=== PATIENT | female | born 1970 | race Caucasian/White ===

== ENCOUNTER 2016-08-10 11:08 | Emergency (ER) | payer MEDICAID ==
[~2016-08-10] VITALS: Ht 152.4 cm; Wt 56.0 kg
[2016-08-10 11:16] VITALS: Ht 152.4 cm; Wt 56.0 kg
[2016-08-10] MEDS ORDERED: ASPIRIN 325 MG TAB PO STA (14:45)
[2016-08-10 15:04] LABS: ADD SCAN DIFF NO
[2016-08-10 15:23] LABS: ANION GAP 11 (8-16); BLOOD UREA NITROGEN 17 mg/dl (7-20); CALCIUM 8.9 mg/dl (8.4-10.2); CARBON DIOXIDE 25 mmol/L (21-31); CHLORIDE 106 mmol/L (97-110); GLUCOSE 95 mg/dl (70-220); POTASSIUM 3.6 mmol/L (3.5-5.1); SODIUM 138 mmol/L (135-144)
--- NOTE | 2016-08-10 15:25 | RADRPT ---
PROCEDURE: XR Chest. CLINICAL INDICATION: chest pain TECHNIQUE: Single frontal view of the chest was obtained COMPARISON: None FINDINGS: The heart and mediastinum are within normal limits. The lungs are clear. There is no pleural effusion or pneumothorax. RPTAT: AA IMPRESSION: No acute disease. .Alan Zarco MD, Date Time Electronically viewed and signed by .Alan Zarco MD, on 08/10/2016 15:24 .S/
[2016-08-10 15:30] LABS: BASOPHILS % 0.7 % (0.0-2.0); EOSINOPHILS # 0.3 10^3/ul (0.0-0.5); EOSINOPHILS % 4.5 % (0.0-7.0); HEMATOCRIT 33.2 % (37.0-47.0); HEMOGLOBIN 10.6 g/dl (12.0-16.0); LYMPHOCYTES # 2.9 10^3/ul (0.8-2.9); LYMPHOCYTES % 49.9 % (15.0-51.0); MEAN CORPUSCULAR HEMOGLOBIN 28.8 pg (29.0-33.0); MEAN CORPUSCULAR HGB CONC 31.9 g/dl (32.0-37.0); MEAN CORPUSCULAR VOLUME 90.2 fl (82.0-101.0); MEAN PLATELET VOLUME 10.4 fl (7.4-10.4); MONOCYTE # 0.4 10^3/ul (0.3-0.9); MONOCYTES % 6.7 % (0.0-11.0); NEUTROPHIL # 2.2 10^3/ul (1.6-7.5); PLATELET COUNT 249 10^3/UL (140-415); RED BLOOD COUNT 3.68 10^6/ul (4.20-5.40); WHITE BLOOD COUNT 5.8 10^3/ul (4.8-10.8)
[2016-08-10 15:37] LABS: TROPONIN-I < 0.012 ng/ml (0.00-0.12)
--- NOTE | 2016-08-10 17:07 | RADRPT ---
PROCEDURE: CT brain without contrast CLINICAL INDICATION: Fall, blurry eyes TECHNIQUE: CT of the brain without contrast was performed on a multidetector CT scanner, with multi planar reformats. One or more of the following dose reduction techniques were used: Automated expos ure control, adjustment in mA and / or kV according to patient size, use of iterative reconstructive technique. CTDIvol = 45 mGy; DLP = 720 mGy-cm. COMPARISON: None available FINDINGS: No acute intracranial hemorrhage is identified. No extra-axial fluid collection is seen. There is no mass effect. No midline shift is identified. Ventricles and sulci are within normal limits for size and configuration. The density of the brain is within normal limits. Langston-white differentiation is preserved. Osseous structures are unremarkable. Mastoid air cells and imaged paranasal sinuses grossly clear. IMPRESSION: Unremarkable noncontrast CT of the brain. RPTAT: VV .Andres Alfred MD, MD Date Time Electronically viewed and signed by .Andres Alfred MD, MD on 08/10/2016 17:07 .O/
[2016-08-10] MEDS ORDERED: IBUP800T25 PO (17:26)
[2016-08-10] MEDS ORDERED: HYDR-906 PO (17:26)
--- NOTE | 2016-08-10 17:38 | ERD ---
ER Documentation Chief Complaint Date/Time DATE: 08/10/16 TIME: 17:30 Chief Complaint chest pain x 3 days ,headcahe , x 4 weeks HPI This 45-year-old female that complains of a fall one month ago and she fell and hit her head and had no loss of consciousness. She said that since the fall she has had off and on left-sided headaches that can last half a day then go away. The headaches are intermittent. She does not have a headache now. She also says since this fall she has had some pain in her left anterior chest wall located at the left mid clavicular line over ribs 4 5 and 6. No shortness of breath but she says that she gets pain in this region twice a week that last 1- 2 seconds and she feels slightly short of breath. There is no radiation of pain no pain in her jaws shoulders neck. She says the pain usually occurs when she is at rest. No exertional chest pain no repetitive use of the left arm or repetitive twisting or bending. She has no cough no fever no back pain no abdominal pain. She says the severity of the pain is been steady throughout the entire month. No palpitations diaphoresis or near syncope. The patient has no risk factors for coronary artery disease ROS All systems reviewed and are negative except as per history of present illness. Medications Home Meds Active Scripts Hydrocodone/Acetaminophen ([place] 5-325 Tablet) 1 Each Tablet, 1 EACH PO q 4-6 hours, #20 TAB Prov:HARI LENZSTOLOS Lance. DO 08/10/16 Ibuprofen* (Motrin*) 800 Mg Tab, 800 MG PO Q6H Y for PAIN AND OR ELEVATED TEMP, #30 TAB Prov:CHICHO LENZS A. DO 08/10/16 Allergies Allergies: Coded Allergies: No Known Allergy (Unverified , 08/10/16) PMhx/Soc Medical and Surgical Hx: pt denies Medical Hx, pt denies Surgical Hx Hx Alcohol Use: No Hx Substance Use: No Hx Tobacco Use: No Smoking Status: Never smoker FmHx Family History: No coronary disease Physical Exam Vitals Vital Signs Date Time Temp Pulse Resp B/P Pulse Ox O2 Delivery O2 Flow Rate FiO2 08/10/16 11:16 98.1 66 18/108 77 Physical Exam Const: Well-developed, well-nourished Head: Atraumatic, normocephalic Eyes: Normal Conjunctiva, PERRLA, EOMI, normal sclera, no nystagmus ENT: Normal External Ears, Nose and Mouth, moist mucus membranes. Neck: Full range of motion. No meningismus, no lymphadenopathy. Resp: Clear to auscultation bilaterally, no wheezing, rhonchi, rales Cardio: Regular rate and rhythm, no murmurs, S1 S2 present, very tender to palpation to the left midclavicular anterior chest ribs 4,5,6. She says it is reproducible Abd: Soft, non tender x 4, non distended. Normal bowel sounds, no guarding or rebound, no pulsitile abdominal masses or bruits Skin: No petechiae or rashes, no ecchymosis , no maculopapular rash Back: No midline or flank tenderness Ext: No cyanosis, or edema, FROM x 4, normal inspection, neurovascularly intact x 4 Neur: Awake and alert, STR 5/5 x 4, sensation intact x 4, no focal findings, cerebellum intact Psych: Normal Mood and Affect Result Diagram: 08/10/16 1455 08/10/16 1455 Results 24 hrs Laboratory Tests Test 08/10/16 14:55 White Blood Count 5.810^3/ul Red Blood Count 3.6810^6/ul Hemoglobin 10.6g/dl Hematocrit 33.2% Mean Corpuscular Volume 90.2fl Mean Corpuscular Hemoglobin 28.8pg Mean Corpuscular Hemoglobin Concent 31.9g/dl Red Cell Distribution Width 16.0% Platelet Count 31759^3/UL Mean Platelet Volume 10.4fl Neutrophils % 38.0% Lymphocytes % 49.9% Monocytes % 6.7% Eosinophils % 4.5% Basophils % 0.7% Nucleated Red Blood Cells % 0.0/100WBC Neutrophils # 2.210^3/ul Lymphocytes # 2.910^3/ul Monocytes # 0.410^3/ul Eosinophils # 0.310^3/ul Basophils # 0.010^3/ul Nucleated Red Blood Cells # 0.010^3/ul Sodium Level 138mmol/L Potassium Level 3.6mmol/L Chloride Level 106mmol/L Carbon Dioxide Level 25mmol/L Anion Gap 11 Blood Urea Nitrogen 17mg/dl Creatinine 0.60mg/dl Glucose Level 95mg/dl Calcium Level 8.9mg/dl Troponin I < 0.012ng/ml Current Medications Medications (Trade) Dose Ordered Sig/Ashlee Route PRN Reason Start Time Stop Time Status Last Admin Dose Admin Aspirin (Aspirin) 325 mg ONCE STAT PO 08/10/16 14:45 08/10/16 14:48 DC 08/10/16 15:01 Procedures/MDM PROCEDURE: CT brain without contrast CLINICAL INDICATION: Fall, blurry eyes TECHNIQUE: CT of the brain without contrast was performed on a multidetector CT scanner, with multiplanar reformats. One or more of the following dose reduction techniques were used: Automated exposure control, adjustment in mA and / or kV according to patient size, use of iterative reconstructive technique. CTDIvol = 45 mGy; DLP = 720 mGy-cm. COMPARISON: None available FINDINGS: No acute intracranial hemorrhage is identified. No extra-axial fluid collection is seen. There is no mass effect. No midline shift is identified. Ventricles and sulci are within normal limits for size and configuration. The density of the brain is within normal limits. Langston-white differentiation is preserved. Osseous structures are unremarkable. Mastoid air cells and imaged paranasal sinuses grossly clear. IMPRESSION: Unremarkable noncontrast CT of the brain. RPTAT: VV .Andres Alfred MD, MD Date Time Electronically viewed and signed by .Andres Alfred MD, on 08/10/2016 17:07 .O/ CC: HAKEEM LENZ DO PROCEDURE: XR Chest. CLINICAL INDICATION: chest pain TECHNIQUE: Single frontal view of the chest was obtained COMPARISON: None FINDINGS: The heart and mediastinum are within normal limits. The lungs are clear. There is no pleural effusion or pneumothorax. RPTAT: AA IMPRESSION: No acute disease. .Alan Zarco MD, Date Time Electronically viewed and signed by .Alan Zarco MD, MD on 08/10/2016 15: 24 .S/ CC: HAKEEM LENZ DO EKG: Rate/Rhythm: [Normal Sinus Rhythm,NL intervals] QRS, ST, QT: NORMAL NE, QRS, QT] Impression: [NORMAL EKG] The patient's chest pain does not sound cardiac. It sounds more clinically correlating with the musculoskeletal picture. Patient fell and hit her head and is likely having some postconcussive headaches. Pleura watch these and this can last for a month or 2 after injury. Also gave her strict cardiac precautions to return. Discharged home with Motrin and [place] and follow closely Departure Diagnosis: Primary Impression: Chest wall pain Additional Impression: Concussion Encounter type: initial encounter Loss of consciousness presence/duration: without LOC Qualified Code: S06.0X0A - Concussion, without LOC, initial encounter Condition: Stable Patient Instructions: After a Concussion, Chest Wall Strain HAKEEM LENZ DO August 10, 2016 17:38
[2016-08-10 17:55] VITALS: BP 102/68; PULSE 65; RESP 18; TEMP 98
== END 2016-08-10 17:59 | disposition home or self-care (01) ==
LOC: E/R 11:08
DX: R07.89 Other chest pain (principal); S06.0X0A Concussion without loss of consciousness, initial encounter; W18.09XA Striking against other object with subsequent fall, initial encounter; Y92.9 Unspecified place or not applicable
CPT/HCPCS: 36415; 70450; 71010; 80048; 84484; 85025; 93005; Z7502; Z7610